=== PATIENT | female | born 1960 | race Caucasian/White ===

== ENCOUNTER 2017-02-26 19:04 | Emergency (ER) | payer MEDICAID ==
[~2017-02-26] VITALS: Ht 167.6 cm; Wt 68.0 kg
[2017-02-26 19:07] VITALS: BP 147/78; PULSE 102; RESP 16; TEMP 98; O2SAT 98
[2017-02-26 19:25] VITALS: BP 129/90; PULSE 100; PULSE 98; RESP 16; O2SAT 99
[2017-02-26] MEDS ORDERED: CITA10TA4 PO (19:35)
[2017-02-26] MEDS ORDERED: LORA1TAB12 PO (19:35)
[2017-02-26] MEDS ORDERED: ADDE20 PO (19:35)
[2017-02-26] MEDS ORDERED: LORA-373 PO (19:48)
--- NOTE | 2017-02-26 19:49 | PD ---
HPI Chief Complaint: Anxiety Time Seen by Provider: 19:33 Travel History International Travel<30 days: No Contact w/Intl Traveler<30days: No Traveled to known affect area: No History of Present Illness HPI PATIENT HAS JUST RUN OUT OF HER ATIVAN 1MG POQHS, HAS NOT BEING ABLE TO SEE HER PCP IN [place]. REQUESTING A PARTIAL FILL OF IT WHILE SHE MAKES HER WAY TO [place] AND REQUESTED INFO ABOUT LOCAL DOCS SINCE SHE L[place] IN THIS ARE[place] ( STATED THAT WHEN SHE MOVED FROM [place], WAS UNABLE TO SEE ANY PCP FOR 6-8MONTHS AND ONLY CLINIC THAT COULD SEE HER WAS IN [place], THAT'S WHY SHE HAS THAT CLINIC INSTEAD OF A LOCAL ONE). PATIENT DENIES SI/HI....PT DENIES ANY SEIZURES AND JUST FEELS A BIT ON EDGE AND INSOMNIA SINCE RUNNING OUT OF ATIVAN. HAS OTHER MEDS AND HAS NOT RUN OUT OF THEM. I ADVISED PATIENT THAT I AM UNABLE TO FILL A MONTH OR CURB BUILDER RX PFSH Past Medical History Anxiety: Yes Diabetes: Yes (PRE DIABETIC) Patient Takes Glucophage: No Insomnia: Yes Menopausal: Yes Past Surgical History Hysterectomy: Yes Other Surgery: Yes (facial sx) Social History Alcohol Use: No Tobacco Use: No Substance Use: No Allergies-Medications (Allergen,Severity, Reaction): Coded Allergies: No Known Allergies (Unverified , 02/26/17) Reported Meds & Prescriptions Reported Meds & Active Scripts Active Reported Lorazepam 1 Mg Tab 1 Mg PO HS PRN Adderall (Amphetamine-Dextroamphetamine) 20 Mg Tab 20 Mg PO BID Avoid late evening doses. Space doses at least 4 to 6 hours if more than once/day dosing. Citalopram (Citalopram Hydrobromide) 10 Mg Tab 10 Mg PO DAILY Review of Systems Psychiatric: Positive: Anxiety (A BIT ANXIOUS BUT NO SI/HI, DUE TO RUNNING OUT OF ATIVAN RECENTLY) Physical Exam Narrative GENERAL: SKIN: Warm and dry. HEAD: Atraumatic. Normocephalic. EYES: Pupils equal and round. No scleral icterus. No injection or drainage. ENT: No nasal bleeding or discharge. Mucous membranes pink and moist. NECK: Trachea midline. No JVD. CARDIOVASCULAR: Regular rate and rhythm. RESPIRATORY: No accessory muscle use. Clear to auscultation. Breath sounds equal bilaterally. GASTROINTESTINAL: Abdomen soft, non-tender, nondistended. Hepatic and splenic margins not palpable. MUSCULOSKELETAL: Extremities without clubbing, cyanosis, or edema. No obvious deformities. NEUROLOGICAL: Awake and alert. No obvious cranial nerve deficits. Motor grossly within normal limits. Five out of 5 muscle strength in the arms and legs. Normal speech. PSYCHIATRIC: Appropriate mood and affect; insight and judgment normal. Data Data Last Documented VS Vital Signs Date Time Temp Pulse Resp B/P Pulse Ox O2 Delivery O2 Flow Rate FiO2 02/26/17 19:36 18 02/26/17 19:25 98 129/90 99 Room Air 02/26/17 19:07 98.0 MDM Medical Decision Making Medical Screen Exam Complete: Yes Emergency Medical Condition: No Medical Record Reviewed: Yes Differential Diagnosis MED REFILL (NO OTHER COMPLAINT) Narrative Course PATIENT HERE FOR MED REFILL, SEE HPI....VSS AND NOT REQUIRING ANY ADDITIONAL INTERVENTION. DENIES SI/HI. WILL REFILL (PARTIALLY) AND REFER TO BRIANNA Diagnosis Primary Impression: MEDICATION REFILL Scripts Lorazepam 0.5 Mg Tab0.5 Mg PO HS PRN (ANXIETY AND/OR INSOMNIA) #10 TAB Ref 0 Prov:Daniel Caro MD 02/26/17 Disposition: 01 DISCHARGE HOME Condition: Stable Daniel Caro MD Feb 26, 2017 19:49
== END 2017-02-26 20:20 | disposition home or self-care (01) ==
LOC: NEPC 19:04
DX: Z76.0 Encounter for issue of repeat prescription (principal); F41.9 Anxiety disorder, unspecified; R73.03 Prediabetes
CPT/HCPCS: 99281

== ENCOUNTER 2017-04-30 12:46 | Emergency (ER) | payer OTHER, MEDICAID ==
[~2017-04-30] VITALS: Ht 157.5 cm; Wt 65.0 kg
[~2017-04-30 12:46] MED LIST: ADDE20 PO; CITA10TA4 PO; LORA-373 PO; LORA1TAB12 PO
[2017-04-30 12:47] VITALS: BP 155/88; PULSE 106; RESP 20; TEMP 97.6; O2SAT 98
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
== END 2017-04-30 13:57 | disposition left against medical advice (07) ==
LOC: NEPD 12:46
DX: Z76.0 Encounter for issue of repeat prescription (principal); F41.9 Anxiety disorder, unspecified; Z78.0 Asymptomatic menopausal state
CPT/HCPCS: 99281

== ENCOUNTER 2017-09-12 11:38 | Inpatient (IN) | payer OTHER, MEDICAID, MEDICARE ==
[~2017-09-12] VITALS: Ht 157.5 cm; Wt 64.5 kg
[~2017-09-12 11:38] MED LIST changes: -LORA-373 PO; +LORA0.5T PO; -LORA1TAB12 PO
[2017-09-12 11:55] VITALS: BP 137/77; PULSE 72; RESP 18; TEMP 97.4; O2SAT 98
[2017-09-12] MEDS ORDERED: ADDE20 PO (12:20)
[2017-09-12 13:06] LABS: AUTOMATED NEUTROPHIL # 2.8 TH/MM3 (1.8-7.7); BASOPHIL # 0.1 TH/MM3 (0-0.2); BASOPHIL % 1.2 % (0.0-2.0); EOSINOPHIL # 0.3 TH/MM3 (0-0.4); EOSINOPHIL % 5.5 % (0.0-4.0); HEMATOCRIT 38.8 % (35.0-46.0); HEMOGLOBIN 13.4 GM/DL (11.6-15.3); LYMPH % 31.3 % (9.0-44.0); LYMPHOCYTE # 1.6 TH/MM3 (1.0-4.8); MEAN CELL VOLUME 90.5 FL (80.0-100.0); MEAN CORPUSCULAR HEMOGLOBIN 31.3 PG (27.0-34.0); MEAN CORPUSCULAR HGB CONC 34.6 % (32.0-36.0); MEAN PLATELET VOLUME 8.3 FL (7.0-11.0); MONO % 7.5 % (0.0-8.0); MONOCYTE # 0.4 TH/MM3 (0-0.9); NEUT % 54.5 % (16.0-70.0); PLATELET COUNT 279 TH/MM3 (150-450); RED BLOOD COUNT 4.28 MIL/MM3 (4.00-5.30); RED CELL DISTRIBUTION WIDTH 12.1 % (11.6-17.2); WHITE BLOOD COUNT 5.2 TH/MM3 (4.0-11.0)
[2017-09-12 13:23] LABS: ALBUMIN 3.6 GM/DL (3.4-5.0); AST (GOT) 253 U/L (15-37); BICARBONATE 27.8 MEQ/L (21.0-32.0); BLOOD UREA NITROGEN 15 MG/DL (7-18); CALCIUM 8.6 MG/DL (8.5-10.1); CHLORIDE 107 MEQ/L (98-107); CREATININE 0.92 MG/DL (0.50-1.00); GLOMERULAR FILTRATION RATE 63 ML/MIN (>89); GLUCOSE,RANDOM 102 MG/DL (74-106); SODIUM (NA) 140 MEQ/L (136-145)
[2017-09-12 13:24] LABS: ALT (GPT) 274 U/L (10-53)
[2017-09-12 13:26] LABS: ALKALINE PHOSPHATASE 109 U/L (45-117); TOTAL BILIRUBIN ADULT 0.4 MG/DL (0.2-1.0); TOTAL PROTEIN 7.2 GM/DL (6.4-8.2)
[2017-09-12 14:06] LABS: BACTERIA, URINE RARE /hpf; BILIRUBIN, URINE NEG (NEG); BLOOD, URINE NEG (NEG); GLUCOSE,URINE NEG (NEG); KETONE, URINE NEG (NEG); MUCUS URINE FEW /lpf (OCC); NITRITE,URINE NEG (NEG); PH, URINE 5.5 (5.0-8.5); SQUAMOUS EPITHELIAL CELL URINE 2 /hpf (0-5); URINE COLOR YELLOW (YELLW/STRAW); URINE LEUKOCYTE ESTERASE TRACE (NEG)
--- NOTE | 2017-09-12 15:39 | PD ---
HPI Chief Complaint: Psychiatric Symptoms Time Seen by Provider: 12:00 Travel History International Travel<30 days: No Contact w/Intl Traveler<30days: No Traveled to known affect area: No History of Present Illness HPI 57-year-old female presents the emergency department under the Woody act with reports of suicidal ideation. Patient is upset because of her recent in the family, and she is unable to get help getting her citalopram 40 mg daily. Patient has no specific plan. She has no complaints of acute medical problems at this time. Patient has no known drug allergies. PFSH Past Medical History ADHD: Yes Anxiety: Yes Depression: Yes Diabetes: Yes (PRE DIABETIC) Patient Takes Glucophage: No Diminished Hearing: No Insomnia: Yes Psychiatric: Yes Tetanus Vaccination: Unknown ?: Not Menopausal: Yes : 1 Past Surgical History Hysterectomy: Yes (Partial) Other Surgery: Yes (facial sx) Social History Alcohol Use: No (Pt denies.) Tobacco Use: No (Pt denies. ) Substance Use: No Allergies-Medications (Allergen,Severity, Reaction): Coded Allergies: No Known Allergies (Unverified Allergy, Unknown, 09/12/17) Per pt. Reported Meds & Prescriptions Reported Meds & Active Scripts Active Reported Adderall (Amphetamine-Dextroamphetamine) 20 Mg Tab 40 Mg PO DAILY Avoid late evening doses. Space doses at least 4 to 6 hours if more than once/day dosing. Adderall (Amphetamine-Dextroamphetamine) 20 Mg Tab 20 Mg PO DAILY AFTERNOON Avoid late evening doses. Space doses at least 4 to 6 hours if more than once/day dosing. Citalopram (Citalopram Hydrobromide) 10 Mg Tab 20 Mg PO DAILY Review of Systems Except as stated in HPI: all other systems reviewed are Neg General / Constitutional: No: Fever Eyes: No: Visual changes HENT: No: Headaches Cardiovascular: No: Chest Pain or Discomfort Respiratory: No: Shortness of Breath Gastrointestinal: No: Abdominal Pain Genitourinary: No: Dysuria Musculoskeletal: No: Pain Skin: No Rash Neurologic: No: Weakness Psychiatric: Positive: Anxiety, No: Depression Endocrine: No: Polydipsia Hematologic/Lymphatic: No: Easy Bruising Physical Exam Narrative GENERAL: Patient appears anxious but has good eye contact. SKIN: Warm and dry. Normal color. Normal turgor. HEAD: Atraumatic. Normocephalic. EYES: Pupils equal and round. No scleral icterus. No injection or drainage. ENT: No nasal bleeding or discharge. Mucous membranes pink and moist. Pharynx is clear. Airway is patent. NECK: Trachea midline. Supple and nontender. CARDIOVASCULAR: Regular rate and rhythm. RESPIRATORY: No accessory muscle use. Clear to auscultation. Breath sounds equal bilaterally. MUSCULOSKELETAL: Extremities without clubbing, cyanosis, or edema. No obvious deformities. NEUROLOGICAL: Awake and alert. No obvious cranial nerve deficits. Motor grossly within normal limits. Five out of 5 muscle strength in the arms and legs. Normal speech. PSYCHIATRIC: Appropriate mood and affect; insight and judgment normal. Data Data Last Documented VS Vital Signs Date Time Temp Pulse Resp B/P (MAP) Pulse Ox O2 Delivery O2 Flow Rate FiO2 09/12/17 11:55 97.4 72 18 137/77 (97) 98 Room Air Orders Orders Complete Blood Count With Diff (09/12/17 12:00) Comprehensive Metabolic Panel (09/12/17 12:00) Urinalysis - C+S If Indicated (09/12/17 12:00) Psych Screen (09/12/17 12:00) Drug Screen, Random Urine (09/12/17 12:00) Alcohol (Ethanol) (09/12/17 12:00) Diet Regular Basic (09/12/17 Lunch) Diet Regular Basic (09/12/17 Dinner) Labs Laboratory Tests Test 09/12/17 12:28 09/12/17 13:40 White Blood Count 5.2 TH/MM3 Red Blood Count 4.28 MIL/MM3 Hemoglobin 13.4 GM/DL Hematocrit 38.8 % Mean Corpuscular Volume 90.5 FL Mean Corpuscular Hemoglobin 31.3 PG Mean Corpuscular Hemoglobin Concent 34.6 % Red Cell Distribution Width 12.1 % Platelet Count 279 TH/MM3 Mean Platelet Volume 8.3 FL Neutrophils (%) (Auto) 54.5 % Lymphocytes (%) (Auto) 31.3 % Monocytes (%) (Auto) 7.5 % Eosinophils (%) (Auto) 5.5 % Basophils (%) (Auto) 1.2 % Neutrophils # (Auto) 2.8 TH/MM3 Lymphocytes # (Auto) 1.6 TH/MM3 Monocytes # (Auto) 0.4 TH/MM3 Eosinophils # (Auto) 0.3 TH/MM3 Basophils # (Auto) 0.1 TH/MM3 CBC Comment DIFF FINAL Differential Comment Blood Urea Nitrogen 15 MG/DL Creatinine 0.92 MG/DL Random Glucose 102 MG/DL Total Protein 7.2 GM/DL Albumin 3.6 GM/DL Calcium Level 8.6 MG/DL Alkaline Phosphatase 109 U/L Aspartate Amino Transf (AST/SGOT) 253 U/L Alanine Aminotransferase (ALT/SGPT) 274 U/L Total Bilirubin 0.4 MG/DL Sodium Level 140 MEQ/L Potassium Level 3.9 MEQ/L Chloride Level 107 MEQ/L Carbon Dioxide Level 27.8 MEQ/L Anion Gap 5 MEQ/L Estimat Glomerular Filtration Rate 63 ML/MIN Ethyl Alcohol Level LESS THAN 3 MG/DL Urine Color YELLOW Urine Turbidity CLEAR Urine pH 5.5 Urine Specific [place] 1.021 Urine Protein NEG mg/dL Urine Glucose (UA) NEG mg/dL Urine Ketones NEG mg/dL Urine Occult Blood NEG Urine Nitrite NEG Urine Bilirubin NEG Urine Urobilinogen LESS THAN 2.0 MG/DL Urine Leukocyte Esterase TRACE Urine RBC 1 /hpf Urine WBC 1 /hpf Urine Squamous Epithelial Cells 2 /hpf Urine Bacteria RARE /hpf Urine Mucus FEW /lpf Microscopic Urinalysis Comment CULT NOT INDICATED Urine Opiates Screen NEG Urine Barbiturates Screen NEG Urine Amphetamines Screen POS Urine Benzodiazepines Screen NEG Urine Cocaine Screen NEG Urine Cannabinoids Screen NEG MDM Medical Decision Making Medical Screen Exam Complete: Yes Emergency Medical Condition: Yes Differential Diagnosis Anxiety. Depression. Suicidal ideation. Narrative Course Psychiatric labs ordered per protocol. Labs are unremarkable except slightly elevated liver function tests. Patient is medically cleared for psychiatric evaluation. Condition: Stable Óscar Campoverde Sep 12, 2017 15:39
[2017-09-12] MEDS ORDERED: diphenhydrAMINE HCL 50 MG/ML VIAL IM PRN (16:45)
[2017-09-12] MEDS ORDERED: LORazepam 2 MG/ML VIAL IM PRN (16:45)
[2017-09-12] MEDS ORDERED: MAGNESIUM HYDROXIDE SUSP 30 ML CUP PO PRN (16:45)
[2017-09-12] MEDS ORDERED: ACETAMINOPHEN 325 MG TAB PO PRN (16:45)
[2017-09-12] MEDS ORDERED: ALUMINUM/MAGNESIUM/SIMETH 30 ML CUP PO PRN (16:45)
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
[2017-09-12] MEDS ORDERED: VIST50CA PO (17:29)
[2017-09-12 18:04] VITALS: BP 144/78; PULSE 76; RESP 18; TEMP 97.6; O2SAT 98
[2017-09-12] MEDS: LORazepam 1 MG TAB PO PRN (20:20)
[2017-09-13 05:53] VITALS: BP 130/74; PULSE 73; RESP 16; TEMP 98.2; O2SAT 97
[2017-09-13] MEDS: LORazepam 1 MG TAB PO PRN (10:03)
--- NOTE | 2017-09-13 10:33 | HHI.PYPN ---
Subjective Remarks Patient seen and examined with nurse. Chart reviewed. I note the patient is under a Woody act which will on 09/15. Case discussed with nursing staff notes patient is tangential, hyperverbal and somewhat hyperkinetic. Case also discussed in treatment team with counselor, occupational therapist and recreational therapist. On my examination today, the patient initially says that representatives at her apartment building said that she was making suicidal statements "to retaliate" against her. She cites numerous psychosocial stressors including her son being missing, her phone not working and other factors. She does admit to saying to representatives at her apartment "if I had a gun, I'd blow my brains out." She denies any suicidal ideation. She denies any access to guns or firearms. She denies any previous history of suicide attempts. She denies any family history of suicide. She denies any drug or alcohol issues. She does perseverate on Ativan and on the difficulty in obtaining controlled substances generally, as it seems she had done with Dr. Brewster. She says that she has maintained chronically on Celexa 40 mg daily and Adderall 60 mg total daily dose. I did review the patient's controlled substances database report, and it appears that she has been receiving fairly regular prescriptions for the stated amount of Adderall, although I do what appears to be at least one early refill in the last year. No physical complaints presently. She says that we can contact her psychologist , bryce Bauer [phone], for collateral information. She is quite discharge focused. Review of Systems Except as stated in HPI: all other systems reviewed are Neg Mental Status Examination Appearance: Other (fair grooming) Consciousness: Alert Orientation: Person, Place, Date/Time (approximate) Motor Activity: Normal gait, Other (mildly hyperkinetic) Speech: Rapid (mild) Language: Perseveration Fund of Knowledge: Adequate Attention and Concentration: Easily Distracted Memory: Unremarkable Mood: Irritable Affect: Irritable Thought Process & Associations: Other (remains circumstantial) Thought Content: Preoccupations Hallucination Type: None Delusion Type: None Suicidal Ideation: No Suicidal Plan: No Suicidal Intention: No Homicidal Ideation: No Homicidal Plan: No Homicidal Intention: No Insight: Fair Judgment: Impulsive Results Labs Test 09/12/17 12:28 09/12/17 13:40 White Blood Count 5.2 TH/MM3 Red Blood Count 4.28 MIL/MM3 Hemoglobin 13.4 GM/DL Hematocrit 38.8 % Mean Corpuscular Volume 90.5 FL Mean Corpuscular Hemoglobin 31.3 PG Mean Corpuscular Hemoglobin Concent 34.6 % Red Cell Distribution Width 12.1 % Platelet Count 279 TH/MM3 Mean Platelet Volume 8.3 FL Neutrophils (%) (Auto) 54.5 % Lymphocytes (%) (Auto) 31.3 % Monocytes (%) (Auto) 7.5 % Eosinophils (%) (Auto) 5.5 % Basophils (%) (Auto) 1.2 % Neutrophils # (Auto) 2.8 TH/MM3 Lymphocytes # (Auto) 1.6 TH/MM3 Monocytes # (Auto) 0.4 TH/MM3 Eosinophils # (Auto) 0.3 TH/MM3 Basophils # (Auto) 0.1 TH/MM3 CBC Comment DIFF FINAL Differential Comment Blood Urea Nitrogen 15 MG/DL Creatinine 0.92 MG/DL Random Glucose 102 MG/DL Total Protein 7.2 GM/DL Albumin 3.6 GM/DL Calcium Level 8.6 MG/DL Alkaline Phosphatase 109 U/L Aspartate Amino Transf (AST/SGOT) 253 U/L Alanine Aminotransferase (ALT/SGPT) 274 U/L Total Bilirubin 0.4 MG/DL Sodium Level 140 MEQ/L Potassium Level 3.9 MEQ/L Chloride Level 107 MEQ/L Carbon Dioxide Level 27.8 MEQ/L Anion Gap 5 MEQ/L Estimat Glomerular Filtration Rate 63 ML/MIN Ethyl Alcohol Level LESS THAN 3 MG/DL Urine Color YELLOW Urine Turbidity CLEAR Urine pH 5.5 Urine Specific [place] 1.021 Urine Protein NEG mg/dL Urine Glucose (UA) NEG mg/dL Urine Ketones NEG mg/dL Urine Occult Blood NEG Urine Nitrite NEG Urine Bilirubin NEG Urine Urobilinogen LESS THAN 2.0 MG/DL Urine Leukocyte Esterase TRACE Urine RBC 1 /hpf Urine WBC 1 /hpf Urine Squamous Epithelial Cells 2 /hpf Urine Bacteria RARE /hpf Urine Mucus FEW /lpf Microscopic Urinalysis Comment CULT NOT INDICATED Urine Opiates Screen NEG Urine Barbiturates Screen NEG Urine Amphetamines Screen POS Urine Benzodiazepines Screen NEG Urine Cocaine Screen NEG Urine Cannabinoids Screen NEG CBC unremarkable. CMP reveals stable decreased GFR and mild transaminitis. Urine toxicology positive for amphetamines. Vitals/IOs Vital Signs Date Time Temp Pulse Resp B/P (MAP) Pulse Ox O2 Delivery O2 Flow Rate FiO2 09/13/17 05:53 98.2 73 16 130/74 (92) 97 09/12/17 11:55 Room Air Assessment & Plan Problem List: (1) Adjustment disorder with mixed disturbance of emotions and conduct ICD Codes: F43.25 - Adjustment disorder with mixed disturbance of emotions and conduct Assessment & Plan: Rule-out drug-induced mood disorder Assessment & Plan Patient seems more organized and less labile when compared to Dr. Brewster's examination, possibly suggesting amphetamine intoxication as the etiology for presenting psychiatric symptomatology, as this would be expected to improve as time from last use increases. I will resume the patient's Celexa as I have lower suspicion for BPAD. I will continue to hold stimulant. Collateral once signed NEEL completed. Continue to monitor on unit. Dr. Brewster has ordered a hospitalist consultation and laboratories, follow-up. Continue other medications and care as ordered. Justification for Cont. Inpt. Monitoring for impairment in safety. Discharge Planning Continue to observe under Woody act. Request HC Surrog/Guard Advoc?: No Ethan Sargent MD Sep 13, 2017 10:33
[2017-09-13 11:14] LABS: AUTOMATED NEUTROPHIL # 2.5 TH/MM3 (1.8-7.7); BASOPHIL # 0.1 TH/MM3 (0-0.2); BASOPHIL % 1.1 % (0.0-2.0); EOSINOPHIL # 0.4 TH/MM3 (0-0.4); EOSINOPHIL % 8.1 % (0.0-4.0); HEMATOCRIT 37.9 % (35.0-46.0); HEMOGLOBIN 13.1 GM/DL (11.6-15.3); LYMPH % 33.3 % (9.0-44.0); LYMPHOCYTE # 1.7 TH/MM3 (1.0-4.8); MEAN CELL VOLUME 90.5 FL (80.0-100.0); MEAN CORPUSCULAR HEMOGLOBIN 31.3 PG (27.0-34.0); MEAN CORPUSCULAR HGB CONC 34.6 % (32.0-36.0); MEAN PLATELET VOLUME 8.5 FL (7.0-11.0); MONOCYTE # 0.5 TH/MM3 (0-0.9); NEUT % 48.5 % (16.0-70.0); PLATELET COUNT 292 TH/MM3 (150-450); RED BLOOD COUNT 4.19 MIL/MM3 (4.00-5.30); RED CELL DISTRIBUTION WIDTH 11.9 % (11.6-17.2); WHITE BLOOD COUNT 5.1 TH/MM3 (4.0-11.0)
[2017-09-13 11:46] LABS: ALBUMIN 3.3 GM/DL (3.4-5.0); AST (GOT) 149 U/L (15-37); BICARBONATE 26.5 MEQ/L (21.0-32.0); BLOOD UREA NITROGEN 12 MG/DL (7-18); CALCIUM 8.9 MG/DL (8.5-10.1); CHLORIDE 106 MEQ/L (98-107); CHOLESTEROL 275 MG/DL (120-200); CREATININE 0.91 MG/DL (0.50-1.00); GLOMERULAR FILTRATION RATE 64 ML/MIN (>89); GLUCOSE,RANDOM 85 MG/DL (74-106); SODIUM (NA) 140 MEQ/L (136-145)
[2017-09-13] MEDS: CITALOPRAM HYDROBROMIDE 40 MG TAB PO SCH (12:00)
[2017-09-13 12:13] LABS: ALKALINE PHOSPHATASE 104 U/L (45-117); ALT (GPT) 244 U/L (10-53); CHOLESTEROL/ HDL RATIO 2.65 RATIO; HDL CHOLESTEROL 103.6 MG/DL (40.0-60.0); LDL CHOLESTEROL 155 MG/DL (0-99); TOTAL BILIRUBIN ADULT 0.3 MG/DL (0.2-1.0); TOTAL PROTEIN 6.8 GM/DL (6.4-8.2); TRIGLYCERIDES 82 MG/DL (42-150)
--- NOTE | 2017-09-13 13:37 | PD.CONS ---
HPI Service [facility] Hospitalists Consult Requested By Primary Care Physician No Primary Care Physician Diagnoses: History of Present Illness denies medical problems takes adderall and citalopram at home and asking for it Review of Systems Except as stated in HPI: all other systems reviewed are Neg Past Family Social History Allergies: Coded Allergies: No Known Allergies (Unverified Allergy, Unknown, 09/12/17) Per pt. Physical Exam Vital Signs Vital Signs Date Time Temp Pulse Resp B/P (MAP) Pulse Ox O2 Delivery O2 Flow Rate FiO2 09/13/17 05:53 98.2 73 16 130/74 (92) 97 09/12/17 18:15 09/12/17 18:04 97.6 76 18 144/78 (100) 98 Physical Exam GENERAL: This is a well-nourished, well-developed patient, in no apparent distress. SKIN: No rashes, ecchymoses or lesions. Cool and dry. HEAD: Atraumatic. Normocephalic. No temporal or scalp tenderness. EYES: Pupils equal round and reactive. Extraocular motions intact. No scleral icterus. No injection or drainage. ENT: Nose without bleeding, purulent drainage or septal hematoma. Throat without erythema, tonsillar hypertrophy or exudate. Uvula midline. Airway patent. NECK: Trachea midline. No JVD or lymphadenopathy. Supple, nontender, no meningeal signs. CARDIOVASCULAR: Regular rate and rhythm without murmurs, gallops, or rubs. RESPIRATORY: Clear to auscultation. Breath sounds equal bilaterally. No wheezes , rales, or rhonchi. GASTROINTESTINAL: Abdomen soft, non-tender, nondistended. No hepato-splenomegaly , or palpable masses. No guarding. MUSCULOSKELETAL: Extremities without clubbing, cyanosis, or edema. No joint tenderness, effusion, or edema noted. No calf tenderness. Negative Homans sign bilaterally. NEUROLOGICAL: Awake and alert. Cranial nerves II through XII intact. Motor and sensory grossly within normal limits. Five out of 5 muscle strength in all muscle groups. Normal speech. Laboratory Laboratory Tests Test 09/12/17 13:40 09/13/17 09:57 Urine Color YELLOW Urine Turbidity CLEAR Urine pH 5.5 Urine Specific [place] 1.021 Urine Protein NEG Urine Glucose (UA) NEG Urine Ketones NEG Urine Occult Blood NEG Urine Nitrite NEG Urine Bilirubin NEG Urine Urobilinogen LESS THAN 2.0 Urine Leukocyte Esterase TRACE Urine RBC 1 Urine WBC 1 Urine Squamous Epithelial Cells 2 Urine Bacteria RARE Urine Mucus FEW Microscopic Urinalysis Comment CULT NOT INDICATED Urine Opiates Screen NEG Urine Barbiturates Screen NEG Urine Amphetamines Screen POS Urine Benzodiazepines Screen NEG Urine Cocaine Screen NEG Urine Cannabinoids Screen NEG White Blood Count 5.1 Red Blood Count 4.19 Hemoglobin 13.1 Hematocrit 37.9 Mean Corpuscular Volume 90.5 Mean Corpuscular Hemoglobin 31.3 Mean Corpuscular Hemoglobin Concent 34.6 Red Cell Distribution Width 11.9 Platelet Count 292 Mean Platelet Volume 8.5 Neutrophils (%) (Auto) 48.5 Lymphocytes (%) (Auto) 33.3 Monocytes (%) (Auto) 9.0 Eosinophils (%) (Auto) 8.1 Basophils (%) (Auto) 1.1 Neutrophils # (Auto) 2.5 Lymphocytes # (Auto) 1.7 Monocytes # (Auto) 0.5 Eosinophils # (Auto) 0.4 Basophils # (Auto) 0.1 CBC Comment DIFF FINAL Differential Comment Blood Urea Nitrogen 12 Creatinine 0.91 Random Glucose 85 Total Protein 6.8 Albumin 3.3 Calcium Level 8.9 Alkaline Phosphatase 104 Aspartate Amino Transf (AST/SGOT) 149 Alanine Aminotransferase (ALT/SGPT) 244 Total Bilirubin 0.3 Sodium Level 140 Potassium Level 4.0 Chloride Level 106 Carbon Dioxide Level 26.5 Anion Gap 8 Estimat Glomerular Filtration Rate 64 Triglycerides Level 82 Cholesterol Level 275 LDL Cholesterol 155 HDL Cholesterol 103.6 Cholesterol/HDL Ratio 2.65 Vitamin B12 Level 1033 25-Hydroxy Vitamin D Total 22.2 Thyroid Stimulating Hormone 3rd Gen 2.390 Result Diagram: 09/13/17 0957 09/13/17 0957 Assessment and Plan Assessment and Plan LFT elevation- asymptomatic will check hepatitis profile if positive, outpatient GI follow up will watch selection of meds based on liver function otherwise no acute medical issues will sign off on the case A1C pending- will follow up number - but doubt any need of treatment as inpatient Davian Ariza MD Sep 13, 2017 13:37
[2017-09-13 14:55] LABS: ALBUMIN 3.4 GM/DL (3.4-5.0); ALT (GPT) 248 U/L (10-53); AST (GOT) 166 U/L (15-37); DIRECT BILIRUBIN ADULT 0.1 MG/DL (0.0-0.2); LIPASE 250 U/L (73-393)
[2017-09-13 14:57] LABS: ALKALINE PHOSPHATASE 107 U/L (45-117); INDIRECT BILIRUBIN 0.3 MG/DL (0.0-0.8); TOTAL BILIRUBIN ADULT 0.4 MG/DL (0.2-1.0); TOTAL PROTEIN 6.9 GM/DL (6.4-8.2)
[2017-09-13 16:25] LABS: HEMOGLOBIN A1C 5.8 % (4.3-6.0)
[2017-09-13 16:43] LABS: HEMOGLOBIN A1C 5.7 % (4.3-6.0)
--- NOTE | 2017-09-13 17:15 | EKG ---
Date Performed: 09/13/2017 Time Performed: 09:34:41 PTAGE: 57 years EKG: Sinus rhythm WITH SINUS ARRHYTHMIA NONSPECIFIC T-WAVE ABNORMALITY BORDERLINE ECG NO PREVIOUS TRACING DOCTOR: Oralia Riley Interpretating Date/Time 09/13/2017 17:13:41
[2017-09-13 18:19] VITALS: BP 142/82; PULSE 77; RESP 16; TEMP 97.6; O2SAT 96
[2017-09-13] MEDS: diphenhydrAMINE HCL 50 MG CAP PO PRN (20:19)
[2017-09-14] MEDS: diphenhydrAMINE HCL 50 MG CAP PO PRN (04:23)
[2017-09-14 05:40] VITALS: BP_SYST 122; BP_SYST 96; BP_DIAS 63; BP_DIAS 64; PULSE 67; PULSE 75; RESP 17; TEMP 97.9; TEMP 98.3; O2SAT 98
[2017-09-14] MEDS: CITALOPRAM HYDROBROMIDE 40 MG TAB PO SCH (08:26)
[2017-09-14 10:37] LABS: HEPATITIS A AB IGM NEGATIVE (NEGATIVE); HEPATITIS B CORE AB IGM NEGATIVE (NEGATIVE); HEPATITIS B SURFACE ANTIGEN NEGATIVE (NEGATIVE); HEPATITIS C AB IgG NEGATIVE (NEGATIVE)
--- NOTE | 2017-09-14 14:07 | HHI.PYPN ---
Subjective Remarks Patient seen and examined with nurse. Chart reviewed. Case discussed with nursing staff who reports the patient was quite hostile with nurse this morning without cause but since that encounter has been seeming to make a concerted effort to restrain herself. On my examination today, patient is superficially quite pleasant, almost ingratiating in her presentation. She complains of some sleep disturbance, and she is charted to have slept 6 hours. She does admit to some issues with mood instability and notes that she has been on Zyprexa in the past in addition to current regimen to good effect. She cannot recall the dose but suspects it was low. She is agreeable to resuming this agent, and we have discussed the R/B/A. She denies SI/HI and once again disavows suicidal statement made prior to admission. Denies side effects from meds. No physical complaints. Not as medication focused for Ativan/stimulant today. Patient has completed signed NEEL for Dr. Bauer, and I have called his office and left a generic voicemail without identifying patient as it is not clear if it is a secure VM requesting a call back. Review of Systems Except as stated in HPI: all other systems reviewed are Neg Mental Status Examination Appearance: Other (fair grooming) Consciousness: Alert Orientation: x4 Motor Activity: Normal gait, Other (no motor abnormalities noted) Speech: Unremarkable Language: Adequate Fund of Knowledge: Adequate Attention and Concentration: Adequate Memory: Unremarkable Mood: Appropriate Affect: Appropriate (but see behavior earlier with nursing staff) Thought Process & Associations: Intact Thought Content: Appropriate Hallucination Type: None Delusion Type: None Suicidal Ideation: No Suicidal Plan: No Suicidal Intention: No Homicidal Ideation: No Homicidal Plan: No Homicidal Intention: No Insight: Fair Judgment: Impulsive Results Labs Test 09/13/17 14:08 Hemoglobin A1c 5.7 % Total Bilirubin 0.4 MG/DL Direct Bilirubin 0.1 MG/DL Indirect Bilirubin 0.3 MG/DL Aspartate Amino Transf (AST/SGOT) 166 U/L Alanine Aminotransferase (ALT/SGPT) 248 U/L Alkaline Phosphatase 107 U/L Total Protein 6.9 GM/DL Albumin 3.4 GM/DL Lipase 250 U/L Hepatitis A IgM Antibody NEGATIVE Hepatitis B Surface Antigen NEGATIVE Hepatitis B Core IgM Antibody NEGATIVE Hepatitis C Antibody NEGATIVE Labs reviewed. Stable mild transaminitis. Hepatitis panel negative. Vitals/IOs Vital Signs Date Time Temp Pulse Resp B/P (MAP) Pulse Ox O2 Delivery O2 Flow Rate FiO2 09/14/17 05:40 97.9 75 17 96/63 (74) 98 09/12/17 11:55 Room Air Assessment & Plan Problem List: (1) Adjustment disorder with mixed disturbance of emotions and conduct ICD Codes: F43.25 - Adjustment disorder with mixed disturbance of emotions and conduct Assessment & Plan Add Zyprexa 5mg qHS for mood stabilization. Although I do not suspect a Bipolar diathesis, there may be some degree of mood instability present even absent stimulant effect, and patient reports benefit from Zyprexa in the past. R/B/A d/w pt. Continue Celexa as ordered. Patient counseled re: stimulant effect on mood and possibility of induction of sapna with SSRI. I have recommended follow up with outpatient providers. Hospitalist input noted and appreciated. Continue to monitor on the inpatient unit. Continue other medications and care as ordered. Woody Act will tomorrow morning ~11: 30am, but I invite patient to sign voluntary if she is willing. Justification for Cont. Inpt. Med changes. Monitoring for impairment in safety. Discharge Planning Anticipate discharge order tomorrow prior to expiration of Woody Act. Request HC Surrog/Guard Advoc?: No Ethan Sargent MD Sep 14, 2017 14:07
[2017-09-14 18:00] VITALS: BP 131/68; PULSE 68; RESP 18; TEMP 98.2; O2SAT 98
[2017-09-14] MEDS ORDERED: OLANZapine 5 MG TAB PO SCH (21:00)
[2017-09-15 05:27] VITALS: BP 121/69; PULSE 69; RESP 16; TEMP 97.8
[2017-09-15] MEDS ORDERED: OLAN5TAB PO (08:46)
[2017-09-15] MEDS ORDERED: CELE40TA PO (08:46)
--- NOTE | 2017-09-15 08:46 | HHI.DS ---
Psychiatry Discharge Summary Inpatient Psychiatric care?: Yes Advance Directive: No Reason Not Provided: Due to Patient Condition Mental Health AdvanceDirective: No Health Care Proxy: No Admission Admission Date Sep 12, 2017 at 16:39 Admission Diagnosis: (1) Bipolar disorder, curr episode mixed, severe, w/o psychotic features ICD Code: F31.63 - Bipolar disorder, current episode mixed, severe, without psychotic features Brief History 57-year-old female, poor historian, brought in under a Woody act initiated by law enforcement. Patient apparently went to the front office complex of the apartment [facility] where she resides, highly agitated and claiming to be suicidal. This physician spoke with Kailey, one of the staff at the apartment complex ([facility]) who confirmed the patient was suicidal with her and with the police when they arrived. Kailey indicated the patient said if she had the money, she would buy a gun and shoot herself. The patient is highly agitated but denies she made these suicidal remarks to Kailey and denies making these remarks to law enforcement. However, Kailey also indicated the patient reported being out of her medication. When confronted with this history, the patient is highly agitated, repeating herself multiple times, speaking in a circumstantial and tangential fashion. She claims to have lived in the [facility] for one year although she was "Lord " hereby an ex-boyfriend. She claims her ex- last week and she absolutely needs to get home to [facility] to take care of his . She reports hearing this news from her son's stepsister. She claims her son has been missing since over a month ago. She also claims if we don't let her go she is going to miss the which is scheduled for this weekend. When confronted with the contradiction of her statements, that she needed to take care of the arrangements and that the will take place this weekend without her, the patient indicated this physician was "mean" . The patient complains vociferously that we in [place] do not treat people well and she cannot get her Ativan. However, she is noted to be positive for amphetamines and admitted to one of our nurses that she takes 60 mg of Adderall per day. This physician is uncertain as to whether the patient is abusing amphetamines or is bipolar but it has now been confirmed by 2 sources that she made suicidal threats. Tobacco Use In Past 30 Days: No Tobacco Past 30 Days Alcohol Use: Never Hospital Course Patient was admitted to a locked, inpatient psychiatric unit. A general medical consultation was obtained. Appropriate precautions were in place throughout patient's hospital stay. Patient was seen and examined on the unit by psychiatry and also visited by counselor. Psychotropic medications were adjusted. Patient tolerated medication changes well without side effects. There was no evidence of any suicidality or homicidality on the inpatient unit. Patient's behavior improved over the course of her hospital stay. She was compliant with medications. Patient completed a release of information for her psychologist, Dr. Bauer, and I have obtained collateral from him this morning 09/15. He notes that he has treated patient episodically over the last several decades and describes her as a "classic fractious borderline" who struggles to remain functional in the community setting. He notes that she has been hospitalized about a half dozen times and reconstitutes quickly. She does have a history of suicidal gestures in the past, although Dr. Bauer suspects that she makes suicidal threats to a far greater degree than she has any genuine suicidal intent because she has learned that verbalizing suicidal ideation is a means to obtain care and attention. She has historically been resistant to DBT skills training. On the day of discharge: Patient seen and examined with nurse. Chart reviewed. Case discussed with nursing staff. No behavioral issues overnight. On my examination today, the patient is requesting discharge from the inpatient psychiatric unit today. She denies any suicidal or homicidal ideation, intent or plan on direct questioning and contracts for safety. I can elicit no depressive or hypomanic/manic symptoms. She denies any audiovisual hallucinations. I can elicit no delusional beliefs. There is no evidence of any impairment in reality construction. She remains somewhat medication seeking for controlled substances. She denies side effects from medications. She has no physical complaints. Suicide and violence risk assessment on day of discharge both suggest lower imminent risk, and the patient 's level of function is adequate for outpatient care. Borderline personality style has been reported by psychologist who knows her well, and her presentation on the unit would not be inconsistent with a borderline personality diagnosis. Borderline personality pathology would confer chronic but not acute or imminent risk, and in any event this risk would not be ameliorated by a longer inpatient psychiatric hospital stay. The patient does not meet criteria for involuntary psychiatric hospitalization at this time. She is requesting discharge from the inpatient psychiatric unit today and I have no basis to retain her on the unit any further over her objection. I will arrange for the patient's discharge today with psychiatric follow-up as arranged by counselor. I have asked the counselor to provide the patient with DBT resources in the community. Patient is also to follow-up with primary care. I have recommended that the patient revisit the appropriateness of use of stimulant with her outpatient provider and have further recommended that she consider discontinuing stimulant entirely. I have counseled the patient regarding warning signs for need to return to the psychiatric emergency room as part of a general safety plan. Results Blood Pressure 121 / 69 Vital Signs Date Time Temp Pulse Resp B/P (MAP) Pulse Ox O2 Delivery O2 Flow Rate FiO2 09/15/17 05:27 97.8 69 16 121/69 (86) 09/14/17 18:00 98 09/12/17 11:55 Room Air Laboratory Tests Test 09/12/17 12:28 09/12/17 13:40 09/13/17 09:57 09/13/17 14:08 Eosinophils (%) (Auto) 5.5 % (0.0-4.0) 8.1 % (0.0-4.0) Aspartate Amino Transf (AST/SGOT) 253 U/L (15-37) 149 U/L (15-37) 166 U/L (15-37) Alanine Aminotransferase (ALT/SGPT) 274 U/L (10-53) 244 U/L (10-53) 248 U/L (10-53) Estimat Glomerular Filtration Rate 63 ML/MIN (>89) 64 ML/MIN (>89) Urine Leukocyte Esterase TRACE (NEG) Urine Bacteria RARE /hpf (NONE) Urine Mucus FEW /lpf (OCC) Urine Amphetamines Screen POS (NEG) Monocytes (%) (Auto) 9.0 % (0.0-8.0) Albumin 3.3 GM/DL (3.4-5.0) Cholesterol Level 275 MG/DL (120-200) LDL Cholesterol 155 MG/DL (0-99) HDL Cholesterol 103.6 MG/DL (40.0-60.0) Vitamin B12 Level 1033 PG/ML (193-986) 25-Hydroxy Vitamin D Total 22.2 ng/ML (30-100) Laboratory Results Test 09/13/17 09:57 09/13/17 14:08 Cholesterol Level 275 MG/DL (120-200) HDL Cholesterol 103.6 MG/DL (40.0-60.0) LDL Cholesterol 155 MG/DL (0-99) Triglycerides Level 82 MG/DL (42-150) Hemoglobin A1c 5.7 % (4.3-6.0) Summary of Procedures None done Imaging None done Pending results at discharge: No Medications # of Antipsychotic meds at D/C: 1 Approp Antipsych med options 1 - Minimum of three failed multiple trials of monotherapy. 2 - Documented plan to taper to monotherapy due to previous use of multiple meds OR cross-taper in progress at D/C. 3 - Documentation of augmentation of Clozapine. 4 - Justification other than those listed in allowable values 1-3, document here : Discharge Discharge Date: Sep 15, 2017 Discharge Diagnosis: (1) Adjustment disorder with mixed disturbance of emotions and conduct Diagnosis: Principal (resolved) ICD Code: F43.25 - Adjustment disorder with mixed disturbance of emotions and conduct (2) Borderline personality traits Diagnosis: Secondary (chronic) (3) Rule-out stimulant intoxication, now resolved Diagnosis: Secondary Pt Condition on Discharge: Stable Discharge Disposition: Discharge Home Discharge Instructions Diet Instructions: As Tolerated, No Restrictions Activities you can perform: Weight Bearing as Jazmyne Scheduled Appointment: as per counselor's notes New Orders: HEPATIC FUNCTION HERRING - 1 Week VITAMIN D,25-HYDROXY - 2 Months New Medications: Cholecalciferol (Vitamin D3) 1,000 Unit Tab 1000 UNITS PO DAILY for Nutritional Supplement, #1 BOTTLE 0 Refills Citalopram (Celexa) 40 Mg Tab 40 MG PO DAILY for Mental Health for 10 Days, #10 TAB 2 Refills Olanzapine (Olanzapine) 5 Mg Tab 5 MG PO HS for Mental Health for 10 Days, TAB 2 Refills Continued Medications: Hydroxyzine Pamoate (Vistaril) 50 Mg Cap 50 MG PO HS, CAP 0 Refills Discontinued Medications: Amphetamine-Dextroamphetamine (Adderall) 20 Mg Tab 20 MG PO Daily Afternoon for Hyperactivity Control, #60 TAB 0 Refills Avoid late evening doses. Space doses at least 4 to 6 hours if more than once/day dosing. Amphetamine-Dextroamphetamine (Adderall) 20 Mg Tab 40 MG PO DAILY for Hyperactivity Control, #60 TAB 0 Refills Avoid late evening doses. Space doses at least 4 to 6 hours if more than once/day dosing. Citalopram (Citalopram) 10 Mg Tab 20 MG PO DAILY for Control Depression, #30 TAB 0 Refills Discharge Time > 30 minutes Mental Status Examination Appearance: Appropriate Consciousness: Alert Orientation: x4 Motor Activity: Normal gait, Other (no abnormal motor movements noted. No hand tremor, no dystonia, no dyskinesia.) Speech: Unremarkable Language: Adequate Fund of Knowledge: Adequate Attention and Concentration: Adequate Memory: Unremarkable Mood: Appropriate Affect: Appropriate Thought Process & Associations: Intact Thought Content: Appropriate Hallucination Type: None Delusion Type: None Suicidal Ideation: No Suicidal Plan: No Suicidal Intention: No Homicidal Ideation: No Homicidal Plan: No Homicidal Intention: No Insight: Fair Judgment: Impulsive (likely chronic condition secondary to borderline personality style) Discharge/Advance Care Plan Health Problems: (1) Adjustment disorder with mixed disturbance of emotions and conduct Goals to promote your health * To prevent worsening of your condition and complications * To maintain your health at the optimal level Directions to meet your goals Take your medications as prescribed Follow your dietary instruction Follow activity as directed Keep your appointments as scheduled Take your immunizations and boosters as scheduled If your symptoms worsen call your PCP, if no PCP go to Urgent Care Center or Emergency Room For 14/03 questions related to your inpatient stay or results of tests pending at discharge, please contact Dr. Ethan Sargent at Smoking is Dangerous to Your Health. Avoid second hand smoking Ethan Sargent MD Sep 15, 2017 08:46
[2017-09-15] MEDS ORDERED: VITA100064 PO (08:47)
[2017-09-15] MEDS: CITALOPRAM HYDROBROMIDE 40 MG TAB PO SCH (08:55)
== END 2017-09-15 13:40 | disposition home or self-care (01) | DRG 885 ==
LOC: NEDAMB 11:38 → NEDA 16:39 → H260 17:58
PROVIDERS: ADMIT Psychiatry & Neurology Psychiatry; ATTEND Psychiatry & Neurology Psychiatry
DX: F31.63 Bipolar disorder, current episode mixed, severe, without psychotic features (principal); R45.851 Suicidal ideations; F43.25 Adjustment disorder with mixed disturbance of emotions and conduct; F15.129 Other stimulant abuse with intoxication, unspecified; F90.9 Attention-deficit hyperactivity disorder, unspecified type; R73.03 Prediabetes; G47.00 Insomnia, unspecified; R79.89 Other specified abnormal findings of blood chemistry; Z81.8 Family history of other mental and behavioral disorders
CPT/HCPCS: 80053; 80061; 80074; 80076; 80307; 81001; 82306; 82607; 83036; 83690; 84443; 85025; 93005; 99285; Q0163

== ENCOUNTER 2018-02-03 11:49 | Emergency (ER) | payer OTHER, MEDICAID ==
[~2018-02-03] VITALS: Ht 157.5 cm; Wt 66.0 kg
[~2018-02-03 11:49] MED LIST changes: -ADDE20 PO; +CELE40TA PO; -CITA10TA4 PO; -LORA0.5T PO; +OLAN5TAB PO; +VIST50CA PO; +VITA100064 PO
[2018-02-03 11:59] VITALS: BP 125/71; PULSE 69; RESP 18; TEMP 97.4; O2SAT 98
[2018-02-03 13:03] LABS: AUTOMATED NEUTROPHIL # 3.1 TH/MM3 (1.8-7.7); BASOPHIL # 0.1 TH/MM3 (0-0.2); BASOPHIL % 1.5 % (0.0-2.0); EOSINOPHIL # 0.5 TH/MM3 (0-0.4); EOSINOPHIL % 7.1 % (0.0-4.0); HEMATOCRIT 38.4 % (35.0-46.0); HEMOGLOBIN 13.3 GM/DL (11.6-15.3); LYMPHOCYTE # 2.1 TH/MM3 (1.0-4.8); MEAN CELL VOLUME 88.8 FL (80.0-100.0); MEAN CORPUSCULAR HEMOGLOBIN 30.7 PG (27.0-34.0); MEAN CORPUSCULAR HGB CONC 34.6 % (32.0-36.0); MONO % 7.9 % (0.0-8.0); MONOCYTE # 0.5 TH/MM3 (0-0.9); NEUT % 49.5 % (16.0-70.0); PLATELET COUNT 249 TH/MM3 (150-450); RED BLOOD COUNT 4.33 MIL/MM3 (4.00-5.30); RED CELL DISTRIBUTION WIDTH 12.4 % (11.6-17.2); WHITE BLOOD COUNT 6.3 TH/MM3 (4.0-11.0)
[2018-02-03 13:15] LABS: ALBUMIN 3.4 GM/DL (3.4-5.0); ALT (GPT) 47 U/L (10-53); AST (GOT) 24 U/L (15-37); BLOOD UREA NITROGEN 10 MG/DL (7-18); CALCIUM 8.4 MG/DL (8.5-10.1); CHLORIDE 109 MEQ/L (98-107); GLOMERULAR FILTRATION RATE 46 ML/MIN (>89); GLUCOSE,RANDOM 128 MG/DL (74-106); SODIUM (NA) 142 MEQ/L (136-145)
[2018-02-03 13:24] LABS: ALKALINE PHOSPHATASE 96 U/L (45-117); TOTAL BILIRUBIN ADULT 0.5 MG/DL (0.2-1.0); TOTAL PROTEIN 6.9 GM/DL (6.4-8.2)
[2018-02-03 13:29] LABS: BILIRUBIN, URINE NEG (NEG); BLOOD, URINE NEG (NEG); GLUCOSE,URINE NEG (NEG); KETONE, URINE NEG (NEG); MUCUS URINE FEW /lpf (OCC); NITRITE,URINE NEG (NEG); SQUAMOUS EPITHELIAL CELL URINE 1 /hpf (0-5); URINE COLOR YELLOW (YELLW/STRAW); URINE LEUKOCYTE ESTERASE NEG (NEG)
--- NOTE | 2018-02-03 13:41 | PD ---
HPI Chief Complaint: Psychiatric Symptoms Time Seen by Provider: 12:07 Travel History International Travel<30 days: No Contact w/Intl Traveler<30days: No Traveled to known affect area: No History of Present Illness HPI Patient is a 58-year-old female presenting to the emergency department initially for medication refill of her Ativan and Adderall. Patient's doctor called the emergency department prior to arrival concerned that patient is paranoid, delusional may be unstable. Patient does admit to feeling very anxious and depressed. She recently moved to the area, she does not have a large support system. She moved here and had a boyfriend but now she is not sure if he is her boyfriend or if they are just friends. She does admit to suicidal ideations but seems ambivalent to dying. She has no physical complaints at this time. She does state that she has not been sleeping well. Symptom onset is unknown, symptoms are moderate in nature. Patient reports running out of her medications about a week and a half ago. PFSH Past Medical History ADHD: Yes Anxiety: Yes Depression: Yes Diabetes: Yes (PRE DIABETIC) Patient Takes Glucophage: No Diminished Hearing: No Insomnia: Yes Psychiatric: Yes Menopausal: Yes : 1 Past Surgical History Hysterectomy: Yes (Partial) Other Surgery: Yes (facial sx) Social History Alcohol Use: No (Pt denies.) Tobacco Use: No (Pt denies. ) Substance Use: No (Pt adamantly denies. ) Allergies-Medications (Allergen,Severity, Reaction): Coded Allergies: No Known Allergies (Unverified Allergy, Unknown, 09/12/17) Per pt. Reported Meds & Prescriptions Reported Meds & Active Scripts Active Vitamin D3 (Cholecalciferol) 1,000 Unit Tab 1,000 Units PO DAILY Olanzapine 5 Mg Tab 5 Mg PO HS 10 Days Celexa (Citalopram Hydrobromide) 40 Mg Tab 40 Mg PO DAILY 10 Days Reported Vistaril (Hydroxyzine Pamoate) 50 Mg Cap 50 Mg PO HS Review of Systems Except as stated in HPI: all other systems reviewed are Neg Psychiatric: Positive: Anxiety, Depression, Suicidal Ideations Physical Exam Narrative GENERAL: Well-developed, well-nourished, well-kept female. Presenting in no acute distress. SKIN: Warm and dry. HEAD: Atraumatic. Normocephalic. EYES: Pupils equal and round. No scleral icterus. No injection or drainage. ENT: No nasal bleeding or discharge. Mucous membranes pink and moist. NECK: Trachea midline. No JVD. CARDIOVASCULAR: Regular rate and rhythm. RESPIRATORY: No accessory muscle use. Clear to auscultation. Breath sounds equal bilaterally. GASTROINTESTINAL: Abdomen soft, non-tender, nondistended. Hepatic and splenic margins not palpable. MUSCULOSKELETAL: Extremities without clubbing, cyanosis, or edema. No obvious deformities. NEUROLOGICAL: Awake and alert. No obvious cranial nerve deficits. Motor grossly within normal limits. Five out of 5 muscle strength in the arms and legs. Normal speech. PSYCHIATRIC: Anxious mood and affect; insight and judgment normal. Data Data Last Documented VS Vital Signs Date Time Temp Pulse Resp B/P (MAP) Pulse Ox O2 Delivery O2 Flow Rate FiO2 02/03/18 11:59 97.4 69 18 125/71 (89) 98 Orders Orders Complete Blood Count With Diff (02/03/18 12:18) Comprehensive Metabolic Panel (02/03/18 12:18) Thyroid Stimulating Hormone (02/03/18 12:18) Urinalysis - C+S If Indicated (02/03/18 12:18) Psych Screen (02/03/18 12:18) Drug Screen, Random Urine (02/03/18 12:18) Alcohol (Ethanol) (02/03/18 12:18) Labs Laboratory Tests Test 02/03/18 12:30 02/03/18 12:45 White Blood Count 6.3 TH/MM3 Red Blood Count 4.33 MIL/MM3 Hemoglobin 13.3 GM/DL Hematocrit 38.4 % Mean Corpuscular Volume 88.8 FL Mean Corpuscular Hemoglobin 30.7 PG Mean Corpuscular Hemoglobin Concent 34.6 % Red Cell Distribution Width 12.4 % Platelet Count 249 TH/MM3 Mean Platelet Volume 8.0 FL Neutrophils (%) (Auto) 49.5 % Lymphocytes (%) (Auto) 34.0 % Monocytes (%) (Auto) 7.9 % Eosinophils (%) (Auto) 7.1 % Basophils (%) (Auto) 1.5 % Neutrophils # (Auto) 3.1 TH/MM3 Lymphocytes # (Auto) 2.1 TH/MM3 Monocytes # (Auto) 0.5 TH/MM3 Eosinophils # (Auto) 0.5 TH/MM3 Basophils # (Auto) 0.1 TH/MM3 CBC Comment DIFF FINAL Differential Comment Blood Urea Nitrogen 10 MG/DL Creatinine 1.20 MG/DL Random Glucose 128 MG/DL Total Protein 6.9 GM/DL Albumin 3.4 GM/DL Calcium Level 8.4 MG/DL Alkaline Phosphatase 96 U/L Aspartate Amino Transf (AST/SGOT) 24 U/L Alanine Aminotransferase (ALT/SGPT) 47 U/L Total Bilirubin 0.5 MG/DL Sodium Level 142 MEQ/L Potassium Level 3.5 MEQ/L Chloride Level 109 MEQ/L Carbon Dioxide Level 23.0 MEQ/L Anion Gap 10 MEQ/L Estimat Glomerular Filtration Rate 46 ML/MIN Thyroid Stimulating Hormone 3rd Gen 2.290 uIU/ML Ethyl Alcohol Level LESS THAN 3 MG/DL Urine Color YELLOW Urine Turbidity CLEAR Urine pH 5.0 Urine Specific [place] 1.024 Urine Protein NEG mg/dL Urine Glucose (UA) NEG mg/dL Urine Ketones NEG mg/dL Urine Occult Blood NEG Urine Nitrite NEG Urine Bilirubin NEG Urine Urobilinogen 2.0 OR LESS mg/dL Urine Leukocyte Esterase NEG Urine RBC 1 /hpf Urine WBC 1 /hpf Urine Squamous Epithelial Cells 1 /hpf Urine Mucus FEW /lpf Microscopic Urinalysis Comment CULT NOT INDICATED Urine Barbiturates Screen NEG Urine Benzodiazepines Screen NEG MDM Medical Decision Making Medical Screen Exam Complete: Yes Emergency Medical Condition: Yes Interpretation(s) Laboratory Tests Test 02/03/18 12:30 02/03/18 12:45 White Blood Count 6.3 TH/MM3 Red Blood Count 4.33 MIL/MM3 Hemoglobin 13.3 GM/DL Hematocrit 38.4 % Mean Corpuscular Volume 88.8 FL Mean Corpuscular Hemoglobin 30.7 PG Mean Corpuscular Hemoglobin Concent 34.6 % Red Cell Distribution Width 12.4 % Platelet Count 249 TH/MM3 Mean Platelet Volume 8.0 FL Neutrophils (%) (Auto) 49.5 % Lymphocytes (%) (Auto) 34.0 % Monocytes (%) (Auto) 7.9 % Eosinophils (%) (Auto) 7.1 % Basophils (%) (Auto) 1.5 % Neutrophils # (Auto) 3.1 TH/MM3 Lymphocytes # (Auto) 2.1 TH/MM3 Monocytes # (Auto) 0.5 TH/MM3 Eosinophils # (Auto) 0.5 TH/MM3 Basophils # (Auto) 0.1 TH/MM3 CBC Comment DIFF FINAL Differential Comment Blood Urea Nitrogen 10 MG/DL Creatinine 1.20 MG/DL Random Glucose 128 MG/DL Total Protein 6.9 GM/DL Albumin 3.4 GM/DL Calcium Level 8.4 MG/DL Alkaline Phosphatase 96 U/L Aspartate Amino Transf (AST/SGOT) 24 U/L Alanine Aminotransferase (ALT/SGPT) 47 U/L Total Bilirubin 0.5 MG/DL Sodium Level 142 MEQ/L Potassium Level 3.5 MEQ/L Chloride Level 109 MEQ/L Carbon Dioxide Level 23.0 MEQ/L Anion Gap 10 MEQ/L Estimat Glomerular Filtration Rate 46 ML/MIN Thyroid Stimulating Hormone 3rd Gen 2.290 uIU/ML Ethyl Alcohol Level LESS THAN 3 MG/DL Urine Color YELLOW Urine Turbidity CLEAR Urine pH 5.0 Urine Specific [place] 1.024 Urine Protein NEG mg/dL Urine Glucose (UA) NEG mg/dL Urine Ketones NEG mg/dL Urine Occult Blood NEG Urine Nitrite NEG Urine Bilirubin NEG Urine Urobilinogen 2.0 OR LESS mg/dL Urine Leukocyte Esterase NEG Urine RBC 1 /hpf Urine WBC 1 /hpf Urine Squamous Epithelial Cells 1 /hpf Urine Mucus FEW /lpf Microscopic Urinalysis Comment CULT NOT INDICATED Urine Barbiturates Screen NEG Urine Benzodiazepines Screen NEG Vital Signs Date Time Temp Pulse Resp B/P (MAP) Pulse Ox O2 Delivery O2 Flow Rate FiO2 02/03/18 11:59 97.4 69 18 125/71 (89) 98 Differential Diagnosis Depression versus anxiety versus mood disorder versus metabolic abnormality versus suicidal ideations versus other Narrative Course Patient is a 58 year female presenting voluntarily to the emergency department for psychiatric evaluation. Patient's vital signs are stable. Mental health screening discussed with the patient. Psychiatric screen ordered. Patient is agreeable to stay voluntarily. Labs reviewed, no acute findings identified. Patient is medically cleared for psychiatric evaluation. Diagnosis Primary Impression: Medical clearance for psychiatric admission Condition: Stable Clarice Crowe Feb 03, 2018 13:41
[2018-02-03 14:00] VITALS: BP 137/78; PULSE 78; RESP 16; TEMP 98.7; O2SAT 99
[2018-02-03 15:27] VITALS: BP 161/85; PULSE 69; RESP 18; TEMP 97.6; O2SAT 97
--- NOTE | 2018-02-03 16:25 | PD ---
Data Data Last Documented VS Vital Signs Date Time Temp Pulse Resp B/P (MAP) Pulse Ox O2 Delivery O2 Flow Rate FiO2 02/03/18 15:27 97.6 69 18 161/85 (110) 97 Room Air Orders Orders Complete Blood Count With Diff (02/03/18 12:18) Comprehensive Metabolic Panel (02/03/18 12:18) Thyroid Stimulating Hormone (02/03/18 12:18) Urinalysis - C+S If Indicated (02/03/18 12:18) Drug Screen, Random Urine (02/03/18 12:18) Alcohol (Ethanol) (02/03/18 12:18) Ed Discharge Order (02/03/18 16:23) Labs Laboratory Tests Test 02/03/18 12:30 02/03/18 12:45 White Blood Count 6.3 TH/MM3 Red Blood Count 4.33 MIL/MM3 Hemoglobin 13.3 GM/DL Hematocrit 38.4 % Mean Corpuscular Volume 88.8 FL Mean Corpuscular Hemoglobin 30.7 PG Mean Corpuscular Hemoglobin Concent 34.6 % Red Cell Distribution Width 12.4 % Platelet Count 249 TH/MM3 Mean Platelet Volume 8.0 FL Neutrophils (%) (Auto) 49.5 % Lymphocytes (%) (Auto) 34.0 % Monocytes (%) (Auto) 7.9 % Eosinophils (%) (Auto) 7.1 % Basophils (%) (Auto) 1.5 % Neutrophils # (Auto) 3.1 TH/MM3 Lymphocytes # (Auto) 2.1 TH/MM3 Monocytes # (Auto) 0.5 TH/MM3 Eosinophils # (Auto) 0.5 TH/MM3 Basophils # (Auto) 0.1 TH/MM3 CBC Comment DIFF FINAL Differential Comment Blood Urea Nitrogen 10 MG/DL Creatinine 1.20 MG/DL Random Glucose 128 MG/DL Total Protein 6.9 GM/DL Albumin 3.4 GM/DL Calcium Level 8.4 MG/DL Alkaline Phosphatase 96 U/L Aspartate Amino Transf (AST/SGOT) 24 U/L Alanine Aminotransferase (ALT/SGPT) 47 U/L Total Bilirubin 0.5 MG/DL Sodium Level 142 MEQ/L Potassium Level 3.5 MEQ/L Chloride Level 109 MEQ/L Carbon Dioxide Level 23.0 MEQ/L Anion Gap 10 MEQ/L Estimat Glomerular Filtration Rate 46 ML/MIN Thyroid Stimulating Hormone 3rd Gen 2.290 uIU/ML Ethyl Alcohol Level LESS THAN 3 MG/DL Urine Color YELLOW Urine Turbidity CLEAR Urine pH 5.0 Urine Specific [place] 1.024 Urine Protein NEG mg/dL Urine Glucose (UA) NEG mg/dL Urine Ketones NEG mg/dL Urine Occult Blood NEG Urine Nitrite NEG Urine Bilirubin NEG Urine Urobilinogen 2.0 OR LESS mg/dL Urine Leukocyte Esterase NEG Urine RBC 1 /hpf Urine WBC 1 /hpf Urine Squamous Epithelial Cells 1 /hpf Urine Mucus FEW /lpf Microscopic Urinalysis Comment CULT NOT INDICATED Urine Opiates Screen NEG Urine Barbiturates Screen NEG Urine Amphetamines Screen NEG Urine Benzodiazepines Screen NEG Urine Cocaine Screen NEG Urine Cannabinoids Screen NEG MDM Supervised Visit with FISH: Yes Narrative Course Patient presented for voluntary psychiatric evaluation, referred by her psychologist. She states she is out of her Adderall, and other controlled medication, feels like she needs a refill. Feels is been more depressed not really sleeping well. Awaiting psychiatric evaluation patient states that she does not want to stay and would like to leave. I personally reassess the patient and she is not an imminent threat to herself or others, does not meet criteria for involuntary hold. Recommend close outpatient follow-up. Stated we would not refill her controlled medications. Diagnosis Primary Impression: Medical clearance for psychiatric admission Patient Instructions: General Instructions Departure Forms: Tests/Procedures Condition: Stable Dean Martin MD Feb 03, 2018 16:25
--- NOTE | 2018-02-03 16:32 | PD ---
History of Present Illness Chief Complaint: Psychiatric Symptoms Time Seen by Provider: 16:25 Travel History International Travel<30 Days: No Contact w/Intl Traveler<30days: No Known affected area: No Legal Status Legal Status: Voluntary History of Present Illness: History of Present Illness HPI Patient is a 58-year-old female with record history of adjustment disorder, borderline personality traits, anxiety who presents to the emergency department initially for medication refill of her Ativan and Adderall. Patient' s doctor called the emergency department prior to arrival concerned that patient is paranoid, delusional may be unstable. ED documentation is reviewed and partially included in this report. " Patient does admit to feeling very anxious and depressed. She recently moved to the area, she does not have a large support system. She moved here and had a boyfriend but now she is not sure if he is her boyfriend or if they are just friends. She does admit to suicidal ideations but seems ambivalent to dying. She has no physical complaints at this time. She does state that she has not been sleeping well. Symptom onset is unknown, symptoms are moderate in nature. Patient reports running out of her medications about a week and a half ago. EMR is reviewed. Patient was admitted to inpatient psychiatric unit September 12 with what initially appeared to be a manic episode with psychotic features. Her discharge diagnoses ruled out the bipolar disorder and it was suspected she had symptoms associated with stimulant intoxication. Collateral information obtained at that time from the therapist that treated her for decades indicated and described her as a "classic fractious borderline" . She does have a history of suicidal gestures in the past, although Dr. Bauer suspected that she makes suicidal threats to a far greater degree than she has any genuine suicidal intent because she has learned that verbalizing suicidal ideation is a means to obtain care and attention". The patient today is alert and oriented. She is calm and cooperative. Her speech is clear and logical. She does not present any evidence of any psychosis while under observation. I can elicit no delusional material and no paranoia. She tells me that she is in between psychiatrists and ran out of her Adderall and Ativan approximately 3 weeks ago. She has an appointment to see Dr. Turner at the end of the month. Patient denies any suicidal or homicidal ideation, intent or plan. She is requesting to be discharged and I find no criteria to retain her here against her will. PFSH Past Medical History ADHD: Yes Anxiety: Yes Depression: Yes Diabetes: Yes (PRE DIABETIC) Patient Takes Glucophage: No Diminished Hearing: No Insomnia: Yes Psychiatric: Yes Menopausal: Yes : 1 Past Surgical History Hysterectomy: Yes (Partial) Other Surgery: Yes (facial sx) Psychiatric History Psychiatric History Hx Psychiatric Treatment: Depression, anxiety and ADD treated for 25 years. Currently awaiting appointment with new psychiatrist. History of Inpatient Treatment: No Guns or firearms in home: No Social History Single female. Hx Alcohol Use: No (Pt denies.) Hx Tobacco Use: No (Pt denies. ) Hx Substance Use: No (Pt adamantly denies. ) Substance Use Type: Amphetamines-Stimulants Hx of Substance Use Treatment: No Family Psychiatric History Negative Allergies-Medications (Allergen,Severity, Reaction): Coded Allergies: No Known Allergies (Unverified Allergy, Unknown, 09/12/17) Per pt. Reported Meds & Prescriptions Reported Meds & Active Scripts Active Vitamin D3 (Cholecalciferol) 1,000 Unit Tab 1,000 Units PO DAILY Olanzapine 5 Mg Tab 5 Mg PO HS 10 Days Celexa (Citalopram Hydrobromide) 40 Mg Tab 40 Mg PO DAILY 10 Days Reported Vistaril (Hydroxyzine Pamoate) 50 Mg Cap 50 Mg PO HS Review of Systems Psychiatric: COMPLAINS OF: Anxiety Mental Status Examination Appearance: Appropriate ([facility]) Consciousness: Alert Orientation: x4 Motor Activity: Normal gait Speech: Unremarkable Language: Adequate Fund of Knowledge: Adequate Attention and Concentration: Adequate Memory: Unremarkable Mood: Appropriate, Anxious Affect: Appropriate Thought Process & Associations: Intact, Logical, Goal directed Thought Content: Appropriate Hallucination Type: None Delusion Type: None Suicidal Ideation: No Suicidal Plan: No Suicidal Intention: No Homicidal Ideation: No Homicidal Plan: No Homicidal Intention: No Insight: Fair Judgment: Adequate MDM Medical Decision Making Medical Record Reviewed: Yes Assessment/Plan Patient is a 58-year-old female with record history of adjustment disorder, borderline personality traits, anxiety who presents to the emergency department initially for medication refill of her Ativan and Adderall. Patient' s doctor called the emergency department prior to arrival concerned that patient is paranoid, delusional may be unstable. Patient was evaluated in J pod. After speaking with ED provider the patient requested to be discharge. She did not present any evidence of any psychosis or sapna. Could elicit no delusional material. Denies suicidal or homicidal ideation, intent or plan. She is requesting to be discharge and I find no criteria to keep her here against her will. She tells me she has an appointment with Dr. Saji Lara at the end of the month and will follow up with him. She would also contact her therapist if she feels she needs more support. Orders Orders Complete Blood Count With Diff (02/03/18 12:18) Comprehensive Metabolic Panel (02/03/18 12:18) Thyroid Stimulating Hormone (02/03/18 12:18) Urinalysis - C+S If Indicated (02/03/18 12:18) Drug Screen, Random Urine (02/03/18 12:18) Alcohol (Ethanol) (02/03/18 12:18) Ed Discharge Order (02/03/18 16:23) Results Vital Signs Date Time Temp Pulse Resp B/P (MAP) Pulse Ox O2 Delivery O2 Flow Rate FiO2 02/03/18 15:27 97.6 69 18 161/85 (110) 97 Room Air 02/03/18 11:59 97.4 69 18 125/71 (89) 98 Laboratory Tests Test 02/03/18 12:30 02/03/18 12:45 White Blood Count 6.3 Red Blood Count 4.33 Hemoglobin 13.3 Hematocrit 38.4 Mean Corpuscular Volume 88.8 Mean Corpuscular Hemoglobin 30.7 Mean Corpuscular Hemoglobin Concent 34.6 Red Cell Distribution Width 12.4 Platelet Count 249 Mean Platelet Volume 8.0 Neutrophils (%) (Auto) 49.5 Lymphocytes (%) (Auto) 34.0 Monocytes (%) (Auto) 7.9 Eosinophils (%) (Auto) 7.1 Basophils (%) (Auto) 1.5 Neutrophils # (Auto) 3.1 Lymphocytes # (Auto) 2.1 Monocytes # (Auto) 0.5 Eosinophils # (Auto) 0.5 Basophils # (Auto) 0.1 CBC Comment DIFF FINAL Differential Comment Blood Urea Nitrogen 10 Creatinine 1.20 Random Glucose 128 Total Protein 6.9 Albumin 3.4 Calcium Level 8.4 Alkaline Phosphatase 96 Aspartate Amino Transf (AST/SGOT) 24 Alanine Aminotransferase (ALT/SGPT) 47 Total Bilirubin 0.5 Sodium Level 142 Potassium Level 3.5 Chloride Level 109 Carbon Dioxide Level 23.0 Anion Gap 10 Estimat Glomerular Filtration Rate 46 Thyroid Stimulating Hormone 3rd Gen 2.290 Ethyl Alcohol Level LESS THAN 3 Urine Color YELLOW Urine Turbidity CLEAR Urine pH 5.0 Urine Specific Wideman 1.024 Urine Protein NEG Urine Glucose (UA) NEG Urine Ketones NEG Urine Occult Blood NEG Urine Nitrite NEG Urine Bilirubin NEG Urine Urobilinogen 2.0 OR LESS Urine Leukocyte Esterase NEG Urine RBC 1 Urine WBC 1 Urine Squamous Epithelial Cells 1 Urine Mucus FEW Microscopic Urinalysis Comment CULT NOT INDICATED Urine Opiates Screen NEG Urine Barbiturates Screen NEG Urine Amphetamines Screen NEG Urine Benzodiazepines Screen NEG Urine Cocaine Screen NEG Urine Cannabinoids Screen NEG Diagnosis Primary Impression: Medical clearance for psychiatric admission Additional Impression: Adjustment disorder with mixed disturbance of emotions and conduct Departure Forms: Tests/Procedures Patient Instructions: General Instructions Condition: Stable Problem Qualifiers Mackenzie Cunningham [facility] Feb 03, 2018 16:32
== END 2018-02-03 16:54 | disposition home or self-care (01) ==
LOC: NEPD 11:49 → NEPJ 16:54
DX: F43.25 Adjustment disorder with mixed disturbance of emotions and conduct (principal); F41.9 Anxiety disorder, unspecified; F90.9 Attention-deficit hyperactivity disorder, unspecified type; Z79.899 Other long term (current) drug therapy
CPT/HCPCS: 80053; 80307; 81001; 84443; 85025; 99284